=== PATIENT | female | born 2000 | race Two or more races ===

== ENCOUNTER 2023-06-06 22:45 | Emergency (ER) | payer SELFPAY ==
[2023-06-06 22:51] VITALS: BP 111/66; PULSE 75; RESP 18; TEMP 98.5; BMI 20.5
[2023-06-07 00:02] LABS: EPI CELLS 8 /uL (0-25.1); HCG,QUALITATIVE URINE Negative; HYALINE CASTS 60 /uL (0-3.1); PH,URINE 5.5 (5.0-8.0); URINE APPEARANCE TURBID; URINE BACTERIA 2422 /uL (0-1359); URINE BILIRUBIN NEGATIVE (NEGATIVE); URINE COLOR ORANGE; URINE GLUCOSE (UA) NEGATIVE (NEGATIVE); URINE KETONE 2+ (NEGATIVE); URINE LEUK ESTERASE 3+ (NEGATIVE); URINE NITRITE POSITIVE (NEGATIVE); URINE PROTEIN 2+ (NEGATIVE); URINE WBC 3081 /uL (0-25.8)
[2023-06-07] MEDS ORDERED: SULFAMETHOXAZOLE/TRIMETHOPRIM 800MG/160MG D.S. TABLET PO ONE (00:51)
[2023-06-07] MEDS ORDERED: SULFAMETHOXAZOLE/TRIMETHOPRIM 800MG/160MG D.S. TABLET ONE (01:06)
[2023-06-07 06:47] LABS: URINE RBC 34499.5 /uL (0-23.9); YEAST NONE SEEN (NEGATIVE)
== END 2023-06-07 01:21 | disposition home or self-care (01) ==
LOC: JER 22:45
DX: N39.0 Urinary tract infection, site not specified (principal); R35.0 Frequency of micturition; R30.0 Dysuria; R31.9 Hematuria, unspecified
CPT/HCPCS: 81003; 84703; 87086; 87186; 99283-25